=== PATIENT | female | born 1990 | race Caucasian/White ===

== ENCOUNTER 2018-05-30 12:51 | Emergency (ER) | payer BC ==
[~2018-05-30] VITALS: Ht 167.6 cm; Wt 56.7 kg
[2018-05-30 13:14] LABS: URINE BILIRUBIN NEGATIVE (Negative); URINE BLOOD 2+ (Negative); URINE CLARITY CLEAR; URINE COLOR YELLOW; URINE GLUCOSE-RANDOM* NEGATIVE (Negative); URINE KETONES 1+ (Negative); URINE LEUKOCYTES-REFLEX NEGATIVE (Negative); URINE NITRITE-REFLEX NEGATIVE (Negative); URINE PROTEIN (DIPSTICK) TRACE (Negative); URINE SPECIFIC GRAVITY >= 1.030 (1.005-1.035); URINE UROBILINOGEN 0.2 E.U./dl (0.2-1.0)
[2018-05-30 13:22] LABS: SQUAMOUS 4-10 Moderate /LPF (0-3)
[2018-05-30 13:23] LABS: BACTERIA-REFLEX 1-9 Few /HPF (None Seen); CASTS None Seen /LPF (None Seen); CRYSTALS None Seen /LPF (None Seen); MUCUS 4-6 Moderate strn/LPF (None Seen); URINE RBC 0-2 Rare /HPF (0-2); URINE WBC-REFLEX 0-5 Rare /HPF (0-5)
[2018-05-30 14:11] LABS: ABSOLUTE NEUTROPHILS 9.6 thou/uL (1.4-8.2); BASOPHILS 0.2 % (0.0-2.0); EOSINOPHILS 0.1 % (0.0-3.0); HEMATOCRIT 44.7 % (37.0-47.0); HEMOGLOBIN 15.4 gm/dL (12.0-15.0); LYMPHOCYTES 3.9 % (24.0-44.0); MCH 30.1 pg (26.0-34.0); MCHC 34.4 g/dL (28.0-37.0); MCV 87.7 fL (80.0-100.0); MONOCYTES 2.9 % (1.0-8.0); PLATELET COUNT 221 thou/uL (150-400); POLYS 92.9 % (36.0-66.0); RDW 13.5 % (10.5-14.5); WBC 10.4 thou/uL (4.0-11.0)
[2018-05-30 14:17] LABS: ANION GAP 13 mmol/L (7-16); BUN 18 mg/dL (7-18); CALCIUM 9.3 mg/dL (8.5-10.1); CHLORIDE 102 mmol/L (98-107); CO2 24 mmol/L (21-32); CREATININE 0.9 mg/dL (0.6-1.0); GLUCOSE 98 mg/dL (74-106); POTASSIUM 4.2 mmol/L (3.5-5.1); SODIUM 139 mmol/L (136-145)
[2018-05-30 14:25] LABS: TROPONIN-I <0.06 ng/mL (<0.06)
[2018-05-30 15:27] VITALS: BP 118/72
--- NOTE | 2018-05-30 17:18 | EKG ---
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 : 1990 Requested By: Ioana Stuart Order Number: [id number] MD: Govind Norton Measurements Intervals [place] Rate: 100 P: 74 NH: 185 QRS: 69 QRSD: 69 T: 20 QT: 340 QTc: 439 Interpretive Statements Sinus tachycardia Borderline T wave abnormalities No previous ECG available for comparison Electronically Signed On 05-30-2018 17:18:39 CDT by Govind Norton [email or web address] ��������������������������������������������� <ELECTRONICALLY SIGNED> ���������������������������������������� By: Govind Norton MD, [facility] ��������������������������������������������� 05/30/18 1718 1334 1334 Govind Norton MD, FACC /EPI
== END 2018-05-30 15:28 | disposition home or self-care (01) ==
LOC: ER 12:51
PROVIDERS: Student in an Organized Health Care Education/Training Program
DX: R55 Syncope and collapse (principal)